=== PATIENT | male | born 1990 | race Two or more races ===

== ENCOUNTER 2020-10-04 22:26 | Emergency (ER) | payer OTHER ==
[~2020-10-04] VITALS: Ht 170.2 cm; Wt 85.3 kg
[2020-10-04] MEDS ORDERED: ZESTRIL10 M1 PO (22:39)
[2020-10-05] MEDS ORDERED: PYRIDIUM DS200 MG PO (01:20)
[2020-10-05] MEDS ORDERED: CEFUROXIME500 MG PO (01:20)
== END 2020-10-05 01:27 ==
LOC: ER 22:26
DX: N39.0 Urinary tract infection, site not specified (principal); A63.8 Other specified predominantly sexually transmitted diseases

== ENCOUNTER 2021-06-04 23:49 | Emergency (ER) | payer OTHER ==
[~2021-06-04] VITALS: Ht 170.2 cm; Wt 85.7 kg
[~2021-06-04 23:49] MED LIST: CEFUROXIME500 MG PO; PYRIDIUM DS200 MG PO; ZESTRIL10 M1 PO
[2021-06-05] MEDS ORDERED: KETO10TA2 PO (01:26)
[2021-06-05] MEDS ORDERED: NORFLEX100MG PO (01:27)
== END 2021-06-05 01:35 | disposition home or self-care (01) ==
LOC: ER 23:49
DX: S93.492A Sprain of other ligament of left ankle, initial encounter (principal); W19.XXXA Unspecified fall, initial encounter; Y93.89 Activity, other specified; Y92.89 Other specified places as the place of occurrence of the external cause; Y99.8 Other external cause status; M62.830 Muscle spasm of back